=== PATIENT | female | born 1970 | race Caucasian/White ===

== ENCOUNTER 2016-12-25 23:04 | Emergency (ER) | payer OTHER ==
[2016-12-26 02:08] LABS: HEMOGLOBIN 8.9 gm/dl (12.3-15.3); RED BLOOD COUNT 3.38 M/UL (4.00-5.10); WHITE BLOOD COUNT 5.6 K/UL (4.5-11.0)
[2016-12-26 02:32] LABS: BUN/CREATININE RATIO 20 (0-10)
== END 2016-12-26 04:43 | disposition home or self-care (01) ==
LOC: ER1 23:04
PROVIDERS: Emergency Medicine
DX: J18.2 Hypostatic pneumonia, unspecified organism (principal); I10 Essential (primary) hypertension; D64.9 Anemia, unspecified
CPT/HCPCS: 36415; 71020; 80053; 81001; 83690; 83735; 83880; 84443; 85025; 93005; 99285